=== PATIENT | female | born 1945 | race Caucasian/White ===

== ENCOUNTER → 2017-01-26 | Outpatient (CLI) | payer BC ==
--- NOTE | 2017-01-26 15:57 | RADRPT ---
PROCEDURE: XR pelvis/left hip. CLINICAL INDICATION: Hip pain TECHNIQUE: AP pelvis/AP and lateral left hip views performed COMPARISON: No prior studies are available for comparison. FINDINGS: There is mild to moderate bilateral hip osteoarthrosis. This is associated with joint space narrowin g, subchondral sclerosis and osteophytosis. There is normal mineralization. No fractures or osseou s lesions are identified. The soft tissues are unremarkable. IMPRESSION: Mild to moderate bilateral hip osteoarthrosis. RPTAT: [facility] .Miguel Corcoran MD, MD Date Time Electronically viewed and signed by .Miguel Corcoran MD, on 01/26/2017 15:56 .B/
== END | disposition home or self-care (01) ==
LOC: HKI 14:34
PROVIDERS: ATTEND Orthopaedic Surgery
DX: M70.62 Trochanteric bursitis, left hip (principal); M17.11 Unilateral primary osteoarthritis, right knee; M25.561 Pain in right knee
CPT/HCPCS: 20610; 73502; G0463; J1030